=== PATIENT | male | born 1975 | race Caucasian/White ===

== ENCOUNTER 2017-01-07 23:47 | Emergency (ER) | payer SELFPAY ==
[~2017-01-07] VITALS: Ht 175.3 cm; Wt 104.1 kg
[2017-01-08 01:14] LABS: ASPARTATE AMINO TRANSFERASE 18 U/L (15-37); BLOOD UREA NITROGEN 11 mg/dL (7-18)
[2017-01-08 01:34] LABS: DAU SCREEN DISCLAIMER
[2017-01-08 01:42] VITALS: BP 136/78
== END 2017-01-08 02:54 | disposition home or self-care (01) ==
LOC: ED 23:59
DX: F51.01 Primary insomnia (principal)
CPT/HCPCS: 36415; 80053; 80307; 84439; 84443; 85025; 93005; 99285

== ENCOUNTER 2017-05-15 04:07 | Emergency (ER) | payer OTHER ==
[~2017-05-15] VITALS: Ht 175.3 cm; Wt 100.0 kg
[2017-05-15 04:09] VITALS: BP 120/88
== END 2017-05-15 05:18 | disposition home or self-care (01) ==
LOC: ED 05:12
DX: H66.001 Acute suppurative otitis media without spontaneous rupture of ear drum, right ear (principal); H92.01 Otalgia, right ear; I95.9 Hypotension, unspecified
CPT/HCPCS: 99283